=== PATIENT | male | born 1995 | race Caucasian/White ===

== ENCOUNTER 2016-05-23 20:46 | Emergency (ER) | payer OTHER ==
[2016-05-23 20:54] VITALS: BP 139/85; PULSE 73; RESP 16; TEMP 97.9; O2SAT 96
--- NOTE | 2016-05-23 21:13 | EDPHY ---
H & P Time Seen by Provider: 05/23/16 21:01 HPI/ROS: CHIEF COMPLAINT: Sore throat x3 days HISTORY OF PRESENT ILLNESS: 21-year-old immunocompetent male complaining of 3 days of bilateral tonsillar enlargement, sore throat. No URI symptoms. No fever no chills. No nuchal rigidity. No chest pain. No cough. REVIEW OF SYSTEMS: A ten point review of systems was performed and is negative with the exception of the items mentioned in the HPI PAST MEDICAL & SURGICAL HISTORY: No pertinent medical or surgical history SOCIAL HISTORY: Student PHYSICAL EXAM (Prior to examination, patient consented to physical exam, hands were washed and my usual and customary physical exam procedures followed) 1) GENERAL: Well-developed, well-nourished, alert and oriented. Appears to be in no acute distress. 2) HEAD: Normocephalic, atraumatic 3) HEENT: Pupils equal, round, reactive to light bilaterally. Sclera anicteric. Oropharynx: No trismus no drooling no hot potato voice. Bilateral tonsillar exudate of, symmetrical, no pointing of the uvula, tonsillar crypts noted Ears bilaterally with normal tympanic membranes. 4) NECK: Full range of motion, no meningeal signs. 5) LUNGS: Clear auscultation bilaterally, no wheezes, no rhonchi, no retractions. 6) HEART: Regular rate and rhythm, no murmur, no heave, no gallop. 7) ABDOMEN: No guarding, no rebound, no focal tenderness, 8) MUSCULOSKELETAL: No peripheral edema or discoloration. 9) BACK: No CVA tenderness. 10) SKIN: No rash, no petechiae. 11) Psychiatric: Patient is oriented X 3, there is no agitation. DIFFERENTIAL DIAGNOSIS: In no particular include but limited to meningitis, peritonsillar abscess, strep pharyngitis Smoking Status: Former smoker Constitutional: Initial Vital Signs Temperature (C) 36.6 C 05/23/16 20:51 Heart Rate 73 05/23/16 20:51 Respiratory Rate 16 05/23/16 20:51 Blood Pressure 139/85 H 05/23/16 20:51 O2 Sat (%) 96 05/23/16 20:51 O2 Delivery Mode Room Air Allergies/Adverse Reactions: Penicillins Allergy (Verified 05/23/16 20:50) Home Medications: Medication Instructions Recorded Clindamycin HCl [Clindamycin] 300 mg PO TID 7 Days 05/23/16 methylPREDNISolone [Medrol Dose 4 mg PO DAILY #1 ea 05/23/16 Derik] MDM/Departure - [facility] ED Course/Re-evaluation: 9:12 p.m.: Doubt peritonsillar retropharyngeal abscess. High clinical suspicion for strep pharyngitis. Recommended treatment. He is penicillin allergic. Started on clindamycin. Recommend follow up with ear nose and throat. Usual and customary pharyngitis precautions provided. - Depart Disposition: Home, Routine, Self-Care Clinical Impression: Acute streptococcal pharyngitis Condition: Good Instructions: Strep Throat (ED) Additional Instructions: Return to the ER immediately if you cannot swallow, have drooling, fevers, neck stiffness, cannot open your jaw, or any other symptoms that concern you. Prescriptions: Clindamycin HCl [Clindamycin] 300 mg PO TID 7 Days methylPREDNISolone [Medrol Dose Derik] 4 mg PO DAILY #1 ea Referrals: Rachana Palm MD [Medical Doctor] - 1-2 days without fail
== END 2016-05-23 21:25 | disposition home or self-care (01) ==
LOC: EDBD 20:46
DX: J02.0 Streptococcal pharyngitis (principal); Z87.891 Personal history of nicotine dependence